=== PATIENT | male | born 1940 | race Caucasian/White ===

== ENCOUNTER → 2016-03-30 | Outpatient (CLI) | payer MEDICARE ==
[~2016-03-30] MED LIST: ASPI81TA81 PO; ATOR1TAB18 PO; ATOR80TA41 PO; CARB25TA PO; CARB25TA9 PO; CLOP75TA PO; FINA1TAB2 PO; LEVO.025 PO; LEVO25TA4 PO; LOSA25TA PO; LOSA25TA31 PO; METO25TA6 PO; NITR0.4S SL; PROS5TAB PO; RANI150 PO; RANI150T PO; RIVA1.5C PO; RIVA15 PO; ST JTAB PO; TAMS0.4C4 PO; TAMS0.4C67 PO
[2016-03-30 12:20] LABS: AUTOMATED NEUTROPHIL # 2.3 TH/MM3 (1.8-7.7); BASOPHIL # 0.1 TH/MM3 (0-0.2); BASOPHIL % 1.2 % (0.0-2.0); EOSINOPHIL # 0.2 TH/MM3 (0-0.4); EOSINOPHIL % 3.3 % (0.0-4.0); HEMATOCRIT 38.8 % (39.0-51.0); HEMO FLAGS DIFF FINAL; LYMPH % 35.2 % (9.0-44.0); LYMPHOCYTE # 1.6 TH/MM3 (1.0-4.8); MEAN CELL VOLUME 87.8 FL (80.0-100.0); MEAN CORPUSCULAR HEMOGLOBIN 30.5 PG (27.0-34.0); MEAN CORPUSCULAR HGB CONC 34.7 % (32.0-36.0); MONO % 10.4 % (0.0-8.0); NEUT % 49.9 % (16.0-70.0); PLATELET COUNT 143 TH/MM3 (150-450); RED BLOOD COUNT 4.42 MIL/MM3 (4.50-5.90); RED CELL DISTRIBUTION WIDTH 14.4 % (11.6-17.2); WHITE BLOOD COUNT 4.6 TH/MM3 (4.0-11.0)
[2016-03-30 12:21] LABS: ANION GAP 3 MEQ/L (5-15); AST (GOT) 31 U/L (15-37); BICARBONATE 29.9 MEQ/L (21.0-32.0); BLOOD UREA NITROGEN 11 MG/DL (7-18); CHLORIDE 108 MEQ/L (98-107); GLOMERULAR FILTRATION RATE 70 ML/MIN (>89); POTASSIUM 4.2 MEQ/L (3.5-5.1); SODIUM (NA) 141 MEQ/L (136-145)
[2016-03-30 12:47] LABS: ALKALINE PHOSPHATASE 117 U/L (45-117); ALT (GPT) 17 U/L (12-78); TOTAL BILIRUBIN ADULT 1.6 MG/DL (0.2-1.0); TRANSFERRIN IRON PROFILE 297 MG/DL (200-360)
== END ==
LOC: PLAB 10:06
PROVIDERS: ATTEND Family Medicine
DX: R53.83 Other fatigue (principal); I82.432 Acute embolism and thrombosis of left popliteal vein
CPT/HCPCS: 36415; 80053; 82607; 83540; 83550; 83921; 84443; 85025

== ENCOUNTER → 2016-06-17 | Outpatient (CLI) | payer MEDICARE ==
[2016-06-17 13:11] LABS: HDL CHOLESTEROL 65.6 MG/DL (40.0-60.0)
== END ==
LOC: PLAB 08:05
PROVIDERS: ATTEND Internal Medicine Interventional Cardiology
DX: I11.9 Hypertensive heart disease without heart failure (principal); E78.00 Pure hypercholesterolemia, unspecified; I25.10 Atherosclerotic heart disease of native coronary artery without angina pectoris; I73.9 Peripheral vascular disease, unspecified
CPT/HCPCS: 36415; 80061; 84450; 84460

== ENCOUNTER → 2016-11-02 | Outpatient (CLI) | payer MEDICARE ==
[~2016-11-02] MED LIST changes: -ATOR80TA41 PO; -CARB25TA PO; -FINA1TAB2 PO; -LEVO.025 PO; -LOSA25TA31 PO; -RANI150 PO; -RIVA15 PO; -ST JTAB PO; -TAMS0.4C67 PO
== END ==
LOC: PLAB 08:57
PROVIDERS: ATTEND Urology
DX: N40.1 Benign prostatic hyperplasia with lower urinary tract symptoms (principal)
CPT/HCPCS: 36415; 84153; 84402; 84403; 84410

== ENCOUNTER → 2016-12-10 | Outpatient (CLI) | payer MEDICARE ==
[2016-12-10 09:23] LABS: AUTOMATED NEUTROPHIL # 2.5 TH/MM3 (1.8-7.7); BASOPHIL % 0.7 % (0.0-2.0); EOSINOPHIL # 0.1 TH/MM3 (0-0.4); EOSINOPHIL % 2.4 % (0.0-4.0); HEMATOCRIT 40.2 % (39.0-51.0); HEMO FLAGS DIFF FINAL; LYMPH % 37.6 % (9.0-44.0); LYMPHOCYTE # 1.8 TH/MM3 (1.0-4.8); MEAN CELL VOLUME 92.5 FL (80.0-100.0); MEAN CORPUSCULAR HEMOGLOBIN 31.9 PG (27.0-34.0); MEAN CORPUSCULAR HGB CONC 34.5 % (32.0-36.0); MONO % 8.2 % (0.0-8.0); NEUT % 51.1 % (16.0-70.0); PLATELET COUNT 135 TH/MM3 (150-450); RED BLOOD COUNT 4.34 MIL/MM3 (4.50-5.90); RED CELL DISTRIBUTION WIDTH 13.8 % (11.6-17.2); WHITE BLOOD COUNT 4.9 TH/MM3 (4.0-11.0)
[2016-12-10 09:53] LABS: ANION GAP 6 MEQ/L (5-15); AST (GOT) 31 U/L (15-37); BICARBONATE 27.5 MEQ/L (21.0-32.0); BLOOD UREA NITROGEN 21 MG/DL (7-18); CHLORIDE 107 MEQ/L (98-107); GLOMERULAR FILTRATION RATE 70 ML/MIN (>89); GLUCOSE,FASTING 92 MG/DL (74-99); POTASSIUM 3.9 MEQ/L (3.5-5.1); SODIUM (NA) 140 MEQ/L (136-145)
[2016-12-10 10:06] LABS: ALKALINE PHOSPHATASE 91 U/L (45-117); ALT (GPT) 20 U/L (12-78); HDL CHOLESTEROL 59.8 MG/DL (40.0-60.0); LDL CHOLESTEROL 44 MG/DL (0-99); TOTAL BILIRUBIN ADULT 1.6 MG/DL (0.2-1.0)
== END ==
LOC: PLAB 07:04
PROVIDERS: ATTEND Internal Medicine Interventional Cardiology
DX: I25.10 Atherosclerotic heart disease of native coronary artery without angina pectoris (principal); I73.9 Peripheral vascular disease, unspecified; I11.9 Hypertensive heart disease without heart failure; E78.5 Hyperlipidemia, unspecified; I10 Essential (primary) hypertension; D69.6 Thrombocytopenia, unspecified; R53.83 Other fatigue
CPT/HCPCS: 36415; 80053; 80061; 84443; 85025

== ENCOUNTER → 2017-03-31 | Outpatient (CLI) | payer MEDICARE ==
[~2017-03-31] MED LIST changes: -ATOR1TAB18 PO; +ATOR80TA45 PO; +METO1TAB42 PO; -METO25TA6 PO
[2017-03-31 13:23] LABS: HEMATOCRIT 42.4 % (39.0-51.0); HEMOGLOBIN 14.5 GM/DL (13.0-17.0); MEAN CELL VOLUME 92.9 FL (80.0-100.0); MEAN CORPUSCULAR HEMOGLOBIN 31.8 PG (27.0-34.0); MEAN CORPUSCULAR HGB CONC 34.2 % (32.0-36.0); MEAN PLATELET VOLUME 8.2 FL (7.0-11.0); PLATELET COUNT 131 TH/MM3 (150-450); RED BLOOD COUNT 4.56 MIL/MM3 (4.50-5.90); RED CELL DISTRIBUTION WIDTH 13.6 % (11.6-17.2); WHITE BLOOD COUNT 5.5 TH/MM3 (4.0-11.0)
[2017-03-31 13:30] LABS: ALBUMIN 3.9 GM/DL (3.4-5.0); AST (GOT) 36 U/L (15-37); BICARBONATE 30.1 MEQ/L (21.0-32.0); BLOOD UREA NITROGEN 18 MG/DL (7-18); CALCIUM 9.3 MG/DL (8.5-10.1); CHLORIDE 108 MEQ/L (98-107); CHOLESTEROL 125 MG/DL (120-200); CREATININE 1.03 MG/DL (0.60-1.30); GLOMERULAR FILTRATION RATE 70 ML/MIN (>89); SODIUM (NA) 143 MEQ/L (136-145)
[2017-03-31 13:36] LABS: ALKALINE PHOSPHATASE 110 U/L (45-117); ALT (GPT) 23 U/L (12-78); CHOLESTEROL/ HDL RATIO 1.87 RATIO; GLUCOSE,FASTING 93 MG/DL (74-99); HDL CHOLESTEROL 66.5 MG/DL (40.0-60.0); LDL CHOLESTEROL 47 MG/DL (0-99); TOTAL BILIRUBIN ADULT 1.6 MG/DL (0.2-1.0); TOTAL PROTEIN 7.2 GM/DL (6.4-8.2); TRIGLYCERIDES 56 MG/DL (42-150)
== END ==
LOC: PLAB 08:36
PROVIDERS: ATTEND Internal Medicine Interventional Cardiology
DX: R07.89 Other chest pain (principal); R94.31 Abnormal electrocardiogram [ECG] [EKG]; R42 Dizziness and giddiness
CPT/HCPCS: 36415; 80053; 80061; 85027

== ENCOUNTER → 2017-06-29 | Outpatient (CLI) | payer MEDICARE ==
[2017-06-29 14:42] LABS: HEMATOCRIT 39.2 % (39.0-51.0); HEMOGLOBIN 13.7 GM/DL (13.0-17.0); MEAN CELL VOLUME 89.2 FL (80.0-100.0); MEAN CORPUSCULAR HEMOGLOBIN 31.1 PG (27.0-34.0); MEAN CORPUSCULAR HGB CONC 34.9 % (32.0-36.0); MEAN PLATELET VOLUME 8.1 FL (7.0-11.0); PLATELET COUNT 145 TH/MM3 (150-450); RED BLOOD COUNT 4.39 MIL/MM3 (4.50-5.90); RED CELL DISTRIBUTION WIDTH 13.9 % (11.6-17.2); WHITE BLOOD COUNT 4.2 TH/MM3 (4.0-11.0)
[2017-06-29 14:59] LABS: CREATININE 0.99 MG/DL (0.60-1.30)
== END ==
LOC: CLAB 14:10
PROVIDERS: ATTEND Internal Medicine Interventional Cardiology
DX: E78.00 Pure hypercholesterolemia, unspecified (principal); I11.9 Hypertensive heart disease without heart failure; I25.118 Atherosclerotic heart disease of native coronary artery with other forms of angina pectoris; I73.9 Peripheral vascular disease, unspecified; R07.89 Other chest pain; R53.83 Other fatigue; Z79.899 Other long term (current) drug therapy
CPT/HCPCS: 36415; 80048; 82550; 84443; 84484; 85027